=== PATIENT | male | born 1950 | race Caucasian/White ===

== ENCOUNTER → 2018-10-05 | Outpatient (CLI) | payer OTHER ==
--- NOTE | 2018-10-05 16:04 | RADIOLOGY IMAGING REPORT ---
FACILITY: [facility] [place] PATIENT NAME: José Miguel Hawkins : 1950 MR: [id number] V: [id number] EXAM DATE: ORDERING PHYSICIAN: WILDA CULVER TECHNOLOGIST: Location: [facility] Patient: José Miguel Hawkins : 1950 Visit/Account:[id number] Date of Sevice: 10/05/2018 Exam type: US ANKLE BRACHIAL INDICES History: Decreased blood flow to the right leg Comparison: None. Findings: The segmental pressure of the right brachial artery is 145 mmHg. The segmental pressure to the right posterior tibial artery is 143 mmHg. Segmental pressure to the right dorsalis pedis artery is 121 mmHg. Segmental pressure to the right great toe is 91 mmHg. Segmental pressure to the left brachial artery is 141 mmHg. Segmental pressure to the left posterior tibial artery is 88 mmHg. Signal pressure to the left dorsalis pedis artery 74 mL of mercury. Signal pressure to the left great toe is 74 mmHg. The ASPEN on the left is 0.61 and on the right is 0.99. The TBI on the left 0.51 and on the right is 0.63 IMPRESSION: 1. ASPEN on the right 0.99 TBI in the right 0.63 ASPEN on the left 0.61 and TBI in the left 0.51 Report Dictated By: Zaira Tom MD at 10/05/2018 3:56 PM Report E-Signed By: Zaira Tom MD at 10/05/2018 4:00 PM WSN:[email or web address]
== END ==
LOC: US 11:38
PROVIDERS: ATTEND Family Medicine
DX: I70.313 Atherosclerosis of unspecified type of bypass graft(s) of the extremities with intermittent claudication, bilateral legs (principal)
CPT/HCPCS: 93922